=== PATIENT | female | born 1980 | race Caucasian/White ===

== ENCOUNTER 2016-07-28 06:46 | Inpatient (IN) | payer BC ==
[~2016-07-28] VITALS: Ht 177.8 cm; Wt 99.8 kg
[2016-08-01] MEDS ORDERED: PRENATAL VIT1 TAB PO (14:01)
[2016-08-01] MEDS ORDERED: ASCORBIC ACID500 MG PO (14:02)
[2016-08-01] MEDS ORDERED: MOTRIN-DPS800 MG PO (14:02)
[2016-08-01] MEDS ORDERED: FEOSOL-DPS325 MG PO (14:02)
[2016-08-01] MEDS ORDERED: COLACE-DPS100 MG PO (14:02)
[2016-08-01] MEDS ORDERED: NIPPLECREAM TP (14:02)
[2016-08-01] MEDS ORDERED: LAN-O-SOOTHE7 GM TP (14:03)
--- NOTE | 2016-08-14 13:03 | OR ---
ADMIT: 07/28/2016 RM/LOC: 224 [facility] MR#: [id number] [facility] [address] [place] [phone] EDMUNDO LOPEZ Callie [address] [place] [id number] Operative/Delivery Room Report SEX: F AGE: 35 : 1980 SURGERY DATE: 07/28/2016 SURGEON: Jasmyne Ansari MD PREOPERATIVE DIAGNOSES: 1. Term intrauterine at 39 and 6/7th weeks. 2. Suspected macrosomia with an estimated weight of 5000 g preoperatively. POSTOPERATIVE DIAGNOSES: 1. Term intrauterine at 39 and 6/7th weeks. 2. Suspected macrosomia with an estimated weight of 5000 g preoperatively. PROCEDURE: Primary low transverse section. RECEIVING TEAM MEMBER: Ruby Lynch MD Resident. FINDINGS: Viable male infant with scores of 9 and 10. Weight of 9 pounds 8 ounces which is (4310 g, intact placenta with three-vessel cord, normal tubes, ovaries, and uterus). ANESTHESIA: Spinal with Duramorph. ESTIMATED BLOOD LOSS: 800 mL. URINE OUTPUT: 100 mL. IV FLUIDS: 800 mL of crystalloid. ANTIBIOTICS: 2 g of Ancef prior to procedure. VTE PROPHYLAXIS: Sequential compression devices. INDICATIONS FOR PROCEDURE: This is a 35-year-old, 3, para 1-0-1-1, who presented to Labor and Delivery at 39 and 6/7th weeks for scheduled primary low-transverse section. Her has been uncomplicated except for her estimated weight on most recent ultrasound was over 4900 g. By Juanjose, estimated weight was 5000 g. Risks, benefits, and alternatives of proceeding with scheduled versus labor were discussed and the patient did desire to proceed with section to reduce risk of shoulder dystocia. Please see clinic notes for details. PROCEDURE IN DETAIL: The patient was taken to the operating room, where spinal anesthesia was placed. She was prepped and draped in the usual sterile fashion in dorsal supine position with a leftward tilt. A time-out was performed. Anesthesia was found to be adequate. A Pfannenstiel incision was then made and carried down to underlying fascia. Fascia was incised bilaterally and the fascial incision was carried out laterally bilaterally ADMIT: 07/28/2016 RM/LOC: 224 [facility] MR#: [id number] [address] [id number] EDMUNDO LOPEZ [address] [place] [id number] Operative/Delivery Room Report SEX: F AGE: 35 : 1980 with Blackburn scissors. Kisha's x2 were placed on the superior aspect of the fascia and rectus muscles were then gently dissected off bluntly. Midline adhesions were taken down sharply with Blackburn scissors. Kisha's were removed and placed on the inferior aspect of the fascia. Again, rectus muscles were dissected off the fascia and midline adhesions were taken down sharply with Blackburn scissors. Rectus muscles were then divided in the midline. Peritoneum was identified, entered bluntly. Peritoneum was then stretched laterally. Bladder blade was placed with good visualization of the lower uterine segment. Bladder flap was created with Metzenbaum scissors and developed digitally. Bladder blade was then replaced. Clean scalpel then used to create hysterotomy incision. Hysterotomy incision was then extended bluntly. head was then grasped and flexed and with fundal pressure, the then delivered. The was vigorous and delayed cord clamping x1 minute was employed. Cord was then clamped and cut and the infant handed to awaiting nursing staff. Cord blood was then obtained. Placenta then delivered with gentle expression. Uterus was then exteriorized and cleared of all remaining clots and debris. 0 Vicryl was then used to close the hysterotomy incision in a running-locked fashion. A second layer of imbrication was then placed. Two gmblgx-rn-aacnz sutures were then needed in the midline for hemostasis. Uterus and posterior cul-de-sac was then irrigated and the uterus was returned to the abdomen. Gutters were examined and cleared of all remaining clots and debris with a wet lap. Attention was then turned to the hysterotomy incision. Small amount of bleeding was then noted on the left angle and [id number]-yf-[id number] was placed. Bladder was then examined, and no evidence of bleeding was noted on the bladder. No injury was also noted. Rectus muscles were inspected and no evidence of bleeding was noted. Fascia was then closed using 0 Vicryl in a running fashion, chcf across. More bleeding was noted and again hysterotomy incision was examined. Again, small amount of bleeding was noted in the left angle. Again, a vrrxyp-mb-qetjn 0 Vicryl was placed and Surgicel was placed over the top to achieve hemostasis. Counts were then repeated and were accurate. The fascia was then closed. The subcutaneous tissue was then irrigated and the areas of bleeding were cauterized with the Bovie. Skin and subcutaneous tissue was reapproximated using 2-0 plain gut and skin was closed using 4-0 Vicryl in a running fashion. Sponge and instrument counts were correct x3. COMPLICATIONS: None. DISPOSITION: The patient is stable in recovery room. to nursery. Jasmyne Ansari MD/ talha JOB #: [id number] CC: Jasmyne Ansari, Attending Physician ADMIT: 07/28/2016 RM/LOC: 224 [facility] MR#: [id number] [facility] [address] [place] [phone] EDMUNDO LOPEZ [address] [place], [place] [id number] Operative/Delivery Room Report SEX: F AGE: 35 : 1980 NO FAMILY PHYSICIAN, Family Physician
--- NOTE | 2016-09-04 13:23 | DS ---
ADMIT: 07/28/2016 RM/LOC: 224 [facility] MR#: [id number] [facility] [address] [place] [phone] EDMUNDO LOPEZ Callie [address] [place] [address] Discharge Summary SEX: F AGE: 35 : 1980 ADMISSION DATE: 07/28/2016 DISCHARGE DATE: 07/31/2016 DIAGNOSES: 1. Term intrauterine at 39 and 6/7th weeks'. 2. Suspected macrosomia with estimated weight of greater than 5000 g. PROCEDURES PERFORMED DURING ADMISSION: Primary low transverse section. HOSPITAL COURSE: Patient was admitted for planned delivery due to suspected macrosomia. She underwent the above procedure which was uncomplicated and delivered a viable male with scores of 9 and 10 and a weight of 9 pounds 8 ounces. Her postoperative course was uncomplicated and she was advanced on postoperative day number one. By postoperative day number three, she desired to be discharged home. She did have anemia postoperatively and was discharged home on iron. DISCHARGE MEDICATIONS: 1. Ferrous sulfate 325 mg p.o. daily for anemia. 2. Percocet 5/325, 1-2 tablets p.o. q.4 hours p.r.n. pain #30, no refills. 3. Motrin 800 mg, one tab every 8 hours p.r.n. pain #60 with one refill. DISCHARGE INSTRUCTIONS: Were reviewed. Patient to follow up six weeks with Dr. Ansari as scheduled. Jasmyne Ansari MD/ radha JOB #: [id number] CC: Jasmyne Ansari MD, Attending Physician FAMILY PHYSICIAN, Family Physician
== END 2016-07-31 11:25 | disposition home or self-care (01) | DRG 765 ==
LOC: BC 06:46 → 2LDRP 06:46 → BC 07-30 08:00 → 2LDRP 07-31 11:25
PROC: 10D00Z1 Extraction of Products of Conception, Low, Open Approach (ICD-10-PCS; principal; 2016-07-28)
PROC: 3E0234Z Introduction of Serum, Toxoid and Vaccine into Muscle, Percutaneous Approach (ICD-10-PCS; 2016-07-31)
DX: O36.63X0 Maternal care for excessive fetal growth, third trimester, not applicable or unspecified (principal); O99.02 Anemia complicating childbirth; D62 Acute posthemorrhagic anemia; D64.9 Anemia, unspecified; Z23 Encounter for immunization; Z3A.39 39 weeks gestation of pregnancy; Z37.0 Single live birth